=== PATIENT | female | born 1960 | race Caucasian/White ===

== ENCOUNTER 2024-06-29 08:43 | Outpatient (AMB) | payer OTHER, SELFPAY ==
--- NOTE | 2024-06-29 08:43 | MHC.OFFWIV ---
Intake Vital Signs 06/29/24 08:45 Weight 164 lb BP 120/82 Blood Pressure Location Rt brachial Position Sitting Pulse 68 Pulse Source Pulse Oximeter Pulse Oximetry (%) 98 Oxygen Delivery Method Room Air Intake Visit Reasons: EP-?shingles Intake Note: Patient here for rash on forehead that is very painful, she states yesterday she started with a weird sensation, burning/tingling feeling on her scalp and woke up this morning with the spot on her forehead. Patient Tobacco Use Status: Former Tobacco user Allergies Sulfa (Sulfonamide Antibiotics) Adverse Reaction (Intermediate, Verified 06/29/24 08:45) rash Medication List - Last Reconciled 06/29/24 by Sandie Del Cid MD amlodipine 5 mg PO DAILY venlafaxine ER 150 mg PO DAILY Do you need a note to return to daycare/school/sports/work: No HPI EP-?shingles HPI Details History - The patient is a 63-year-old female presenting with right-sided headache and associated burning scalp sensation and painful rash. - Onset of symptoms began on Thursday with a bad headache localized to the right side, described as a burning sensation on the scalp. - Patient likens the sensation to sunburn and reports significant pain. - Rash development was noted the following day, Thursday, with the area being very painful. - No previous history of herpes zoster (shingles) or similar symptoms. - Reports taking Amlodipine and Effexor as current medications. - No issues with kidney or liver functions as per patient report. Problem List - Herpes Zoster (Shingles) Patient Instructions - Take prednisone for inflammation as prescribed. - Take prescribed Famvir for shingles. - Avoid touching or scratching the rash to prevent spreading. - Be cautious of any eye irritation or pain; seek an eye doctor immediately if such symptoms occur. - Start medication as soon as possible. - Collect medication from [facility] pharmacy in [place]. - Observe for any changes or escalation in symptoms. Review of Systems - General: No fever no chills - Neurological: no dizziness - Ear nose throat: No sore throat no hearing difficulty no ear pain - Cardiovascular: No syncope, no chest pain, no palpitations - Gastrointestinal: No nausea vomiting or diarrhea Physical Exam General: No acute distress HEENT: Maculopapular rash present right side dermatome V1 Neck: Supple Respiratory system: Able to talk in full sentences, no audible wheeze Gastrointestinal: No pain Extremities: No new findings [employer]: Alert awake oriented x3 motor sensory intact PFSH Social History Patient Tobacco Use Status: Former Tobacco user Physical Exam Vital Signs: Last Vital Signs Pulse 68 06/29/24 08:45 BP 120/82 06/29/24 08:45 Pulse Ox 98 06/29/24 08:45 Oxygen Delivery Method Room Air 06/29/24 08:45 Assessment & Plan Assessment & Plan (1) Acute trigeminal herpes zoster: Code(s): B02.22 - Postherpetic trigeminal neuralgia Plan History - The patient is a 63-year-old female presenting with right-sided headache and associated burning scalp sensation and painful rash. - Onset of symptoms began on Thursday with a bad headache localized to the right side, described as a burning sensation on the scalp. - Patient likens the sensation to sunburn and reports significant pain. - Rash development was noted the following day, Thursday, with the area being very painful. - No previous history of herpes zoster (shingles) or similar symptoms. - Reports taking Amlodipine and Effexor as current medications. - No issues with kidney or liver functions as per patient report. Problem List - Herpes Zoster (Shingles) Patient Instructions - Take prednisone for inflammation as prescribed. - Take prescribed Famvir for shingles. - Avoid touching or scratching the rash to prevent spreading. - Be cautious of any eye irritation or pain; seek an eye doctor immediately if such symptoms occur. - Start medication as soon as possible. - Collect medication from [facility] pharmacy in [place]. - Observe for any changes or escalation in symptoms. Medications: New prednisone 20 mg PO DAILY 5 days 5 tabs 0RF famciclovir 500 mg PO Q8H 7 days 21 tabs 0RF Coding Level of Care Code Est Pt Level 3 (07940) Diagnoses Acute trigeminal herpes zoster B02.22
[2024-06-29 08:45] VITALS: BP 120/82; PULSE 68; O2SAT 98
== END 2024-06-29 08:59 | disposition home or self-care (01) ==
PROVIDERS: PCP Internal Medicine; Visit Provider Internal Medicine
DX: B02.22 Postherpetic trigeminal neuralgia (principal)

== ENCOUNTER → 2024-06-29 08:43 | Outpatient (BNVA) | payer OTHER, SELFPAY | PROVIDERS: PCP Internal Medicine; Visit Provider Internal Medicine | DX: Z13.89 Encounter for screening for other disorder (principal) ==